=== PATIENT | male | born 1980 ===

== ENCOUNTER → 2017-03-08 | Outpatient (CLI) | payer BC ==
--- NOTE | 2017-03-08 08:23 | DIAGNOSTIC IMAGING REPORT ---
BILIARY ULTRASOUND CLINICAL HISTORY: Abnormal liver function tests COMPARISON STUDY: No previous studies for comparison. FINDINGS: The pancreas appears normal as visualized. The gallbladder appears sonographically normal. No focal hepatic masses are visualized. There is no ductal dilatation. The common bile duct measures 3 mm. There is no right-sided hydronephrosis. IMPRESSION: Normal biliary ultrasound. Electronically signed by: Al Gonzales M.D. 03/08/2017 8:21 AM Dictated Date/Time: 03/08/2017 8:21 AM
== END | disposition home or self-care (01) ==
LOC: C.ULTRBC 07:42
PROVIDERS: ATTEND Internal Medicine Gastroenterology
DX: R79.89 Other specified abnormal findings of blood chemistry (principal)